=== PATIENT | male | born 1935 | race African-American/Black ===

== ENCOUNTER 2017-08-26 19:33 | Emergency (ER) | payer OTHER ==
[2017-08-26 20:06] VITALS: BP 110/60; PULSE 73; TEMP 98.2; BMI 22.2
--- NOTE | 2017-08-26 21:14 | PDOC ---
Attending Attestation - Resident Resident Name: [place] - ED Attending Attestation I have performed the following: I have examined & evaluated the patient, The case was reviewed & discussed with the resident, I agree w/resident's findings & plan, Exceptions are as noted - Physicial Exam PE: 08/26/17 23:51 Patient is awake and alert, afebrile, no distress, uncooperative; heent-ok cta rrr There are gauze dressings to the upper extremities bilaterally which the patient does not allow M.D. 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 Patient refused evaluation in the ER as well as any blood draws at the moment. Patient received vancomycin and gentamicin during hemodialysis prior to arrival. Patient has been advised of the seriousness of his condition which may lead to overwhelming sepsis, significant comorbidity and even . Patient expressed understanding but did not wish to be evaluated in the ER and signed out AMA. <Brandon Reyes - Last Filed: 08/26/17 23:51> - HPI HPI: 08/26/17 21:17 The patient is a 82 year old male, with a significant past medical history of ESRD (on dialysis M,W,F) and hypertension, who presents to the emergency department sent from dialysis center for evaluation of bleeding right AV graft and suspected infection s/p dialysis treatment today. - Medical Decision Making 08/26/17 21:17 First call placed to Dr. Marin at 23:42. Awaiting call back. Case discussed with Dr. Marin at 23:45. Documentation prepared by Camille Welch, acting as adjunct faculty for medical terminology for Brandon Reyes MD. <Camille Welch - Last Filed: 08/26/17 23:57>
--- NOTE | 2017-08-26 22:09 | PDOC ---
History of Present Illness - General Chief Complaint: Dialysis Shunt Problem Stated Complaint: DIALYSIS PORT PROBLEM Time Seen by Provider: 08/26/17 20:11 History Source: Patient, [facility] Records - History of Present Illness Initial Comments: 08/26/17 22:02 82M on dialysis M/W/F for hypertensive end stage renal disease who received his dialysis today, referred by Dr. Marin for an open wound on Right Upper Arteriovenous graft with "white plastic part visible" 142/54 70 18 temp 98 Given Vanco 1g and 80mg Gentamycin 08/26/17 23:50 Past History - Past Medical History Allergies/Adverse Reactions: Allergies Allergy/AdvReac Type Severity Reaction Status Date / Time No Known Allergies Allergy Verified 07/15/17 12:17 Home Medications: Ambulatory Orders Nut.tx.impaired Renal Fxn,Soy [Nepro] 1,000 ml PO BID 08/23/14 Bupropion HCl [Bupropion Xl] 150 mg PO DAILY 07/13/17 Quetiapine Fumarate [Seroquel -] 25 mg PO HS 07/13/17 Cinacalcet HCl [Sensipar] 60 mg PO DAILY 07/15/17 Escitalopram Oxalate [Lexapro -] 5 mg PO DAILY 07/15/17 Ferrous Sulfate 325 mg PO DAILY 07/15/17 Olanzapine 5 mg PO HS 07/15/17 Tamsulosin HCl [Flomax] 0.4 mg PO HS 07/15/17 Anemia: No Asthma: No Cancer: No Cardiac Disorders: No CVA: No COPD: No CHF: No Dementia: Yes Diabetes: No Dialysis: Yes (M,W,F) GI Disorders: No Disorders: Yes (BPH, END STAGE RENAL DISEASE) HTN: Yes Hypercholesterolemia: No Liver Disease: No Seizures: No Thyroid Disease: No - Suicide/Smoking/Psychosocial Hx Smoking Status: No Smoking History: Never smoked Have you smoked in the past 12 months: No Number of Cigarettes Smoked Daily: 0 Information on smoking cessation initiated: No Hx Alcohol Use: No Drug/Substance Use Hx: No Substance Use Type: None Hx Substance Use Treatment: No *Physical Exam - Vital Signs Last Vital Signs Temp Pulse Resp BP Pulse Ox 98.2 F 73 18 110/60 98 08/26/17 19:45 08/26/17 19:45 08/26/17 19:45 08/26/17 19:45 08/26/17 19:45 - Physical Exam General Appearance: Yes: Disheveled, Thin HEENT: positive: EOMI, WILLY, Normal ENT Inspection Neck: negative: Tender Respiratory/Chest: positive: Lungs Clear, Normal Breath Sounds. negative: Chest Tender Cardiovascular: positive: Regular Rhythm, Regular Rate, S1, S2 Gastrointestinal/Abdominal: positive: Normal Bowel Sounds. negative: Tender Extremity: positive: Other (bleeding from AVG on upper right arm. refuses any further evaluation). negative: Normal Capillary Refill Neurologic: positive: Depressed Affect (extremely irritable) Medical Decision Making - Medical Decision Making 08/26/17 22:14 82 with bleeding from AVG site on upper right arm. PAtient non-compliant with evaluation and treatment. Wants to leave AMA. Signed the AMA form. Transportation arranged to [facility] 08/26/17 22:27 08/26/17 23:[address] Carlos A Marin who advised letting Dr. Augustin Barahona know for surgery next dialysis encounter *DC/Admit/Observation/Transfer Diagnosis at time of Disposition: Hemodialysis graft malfunction - Discharge Dispostion Disposition: AGAINST MEDICAL ADVICE Condition at time of disposition: Unchanged/Unknown - Referrals - Patient Instructions - Post Discharge Activity
== END 2017-08-27 00:14 | disposition left against medical advice (07) ==
LOC: JER 19:33
DX: T82.590A Other mechanical complication of surgically created arteriovenous fistula, initial encounter (principal); N18.6 End stage renal disease; Z99.2 Dependence on renal dialysis
CPT/HCPCS: 99281-25

== ENCOUNTER 2017-10-22 08:37 | Day surgery (SDC) | payer OTHER ==
[2017-10-21 12:24] VITALS: BMI 17.3
[2017-10-22] MEDS ORDERED: ceFAZolin SODIUM 1 GM VIAL IVPB ONE (14:25)
[2017-10-22] MEDS ORDERED: PROPOFOL 20 ML ONE (14:27)
[2017-10-22] MEDS ORDERED: ceFAZolin SODIUM 1 GM VIAL ONE (14:29)
[2017-10-22] MEDS ORDERED: LIDOCAINE HCL 1%, 10 MG/ML (20ML VIAL) PNB ONE (15:15)
--- NOTE | 2017-10-22 15:24 | OP ---
Operative Note - Note: Operative Date: 10/22/17 Pre-Operative Diagnosis: infected right avg Operation: removal of right avg Post-Operative Diagnosis: Same as Pre-op Surgeon: Augustin Barahona Anesthesia: Fractional Estimated Blood Loss (mls): 30 Operative Report Dictated: Yes
--- NOTE | 2017-10-22 15:29 | HP ---
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: Other (Unspecified psychosis) Renal/: Yes: Renal Failure, Hemodialysis, UTI, Other (retention of urine) Psych: Yes: Psychosis Musculoskeletal: Yes: Other (muscle weakness; pressure ulcer of right buttock; pressure ulcer of sacral region) - Past Surgical History Past Surgical History: Yes: AV Fistula/Graft - Smoking History Smoking history: Never smoked Have you smoked in the past 12 months: No Aproximately how many cigarettes per day: 0 - Alcohol/Substance Use Hx Alcohol Use: No Home Medications - Allergies Allergies/Adverse Reactions: Allergies Allergy/AdvReac Type Severity Reaction Status Date / Time No Known Allergies Allergy Verified 10/21/17 12:33 - Home Medications Home Medications: Ambulatory Orders Nut.tx.impaired Renal Fxn,Soy [Nepro] 1,000 ml PO BID 08/23/14 Bupropion HCl [Bupropion Xl] 150 mg PO DAILY 07/13/17 Quetiapine Fumarate [Seroquel -] 25 mg PO HS 07/13/17 Cinacalcet HCl [Sensipar] 60 mg PO DAILY 07/15/17 Escitalopram Oxalate [Lexapro -] 5 mg PO DAILY 07/15/17 Ferrous Sulfate 325 mg PO DAILY 07/15/17 Olanzapine 5 mg PO HS 07/15/17 Tamsulosin HCl [Flomax] 0.4 mg PO HS 07/15/17 Review of Systems - Review of Systems Constitutional: reports: No Symptoms Eyes: reports: No Symptoms HENT: reports: No Symptoms Neck: reports: No Symptoms Cardiovascular: reports: No Symptoms Respiratory: reports: No Symptoms Gastrointestinal: reports: No Symptoms Genitourinary: reports: No Symptoms Breasts: reports: No Symptoms Reported Musculoskeletal: reports: No Symptoms Integumentary: reports: No Symptoms Neurological: reports: No Symptoms Endocrine: reports: No Symptoms Hematology/Lymphatic: reports: No Symptoms Psychiatric: reports: No Symptoms Physical Examination Vital Signs: Vital Signs Temperature 97.8 F 10/22/17 09:24 Pulse Rate 77 10/22/17 09:24 Respiratory Rate 16 10/22/17 09:24 Blood Pressure 100/51 10/22/17 09:24 O2 Sat by Pulse Oximetry (%) 95 10/22/17 09:24 Constitutional: Yes: Well Nourished, No Distress, Calm Eyes: Yes: WNL, Conjunctiva Clear, EOM Intact HENT: Yes: WNL, Atraumatic, Normocephalic Neck: Yes: WNL, Supple, Trachea Midline Cardiovascular: Yes: WNL, Regular Rate and Rhythm Respiratory: Yes: WNL, Regular, CTA Bilaterally Gastrointestinal: Yes: WNL, Normal Bowel Sounds Musculoskeletal: Yes: WNL Extremities: Yes: WNL Edema: No Integumentary: Yes: WNL Neurological: Yes: WNL, Alert, Oriented ...Motor Strength: WNL Psychiatric: Yes: WNL Labs: CBC, BMP 10/22/17 10:35 Problem List - Problems (1) Infection of AV graft for dialysis Code(s): T82.7XXA - INFECT/INFLM REACT D/T OTH CARDI/VASC DEV/IMPLNT/GRFT, INIT (2) Hemodialysis graft malfunction Code(s): T82.319A - BREAKDOWN (MECHANICAL) OF UNSP VASCULAR GRAFTS, INIT ENCNTR Assessment/Plan Infected right avg 1. for removal of avg today.
[2017-10-22] MEDS ORDERED: ONDANSETRON 4 MG/2 ML VIAL IVPUSH PRN (15:40)
[2017-10-22 16:39] VITALS: TEMP 98
[2017-10-22 17:33] VITALS: BP 123/63; PULSE 80
--- NOTE | 2017-10-26 08:44 | PATH ---
Surgical Pathology Report Patient Name: KURTIS GAGNON Med. Rec. #: [id number] /Age/Gender: 1935 (Age: 82) / M Account: [id number] Location: [facility] Taken: 10/22/2017 Received: 10/23/2017 Reported: 10/26/2017 Physicians: Augustin Barahona Specimen(s) Received REMOVED RIGHT AVG Clinical History Infected right AVG Final Diagnosis ARM, RIGHT, AVG, GRAFT, REMOVAL: GRAFT MATERIAL. MACROSCOPIC DIAGNOSIS. Electronically Signed Hermelinda Becker M.D. Gross Description Received fresh labeled "removed right arm graft," is a 6.0 cm in length tubular foreign body, consistent with a graft. No sections are submitted, gross only. DL/10/23/201710/23/2017
--- NOTE | 2017-10-27 14:16 | OP ---
DATE OF OPERATION: 10/22/2017 PREOPERATIVE DIAGNOSIS: Infected right arteriovenous graft. POSTOPERATIVE DIAGNOSIS: Infected right arteriovenous graft. PROCEDURE: Removal of right arteriovenous graft. SURGEON: Augustin Ocasio DO ANESTHESIA: Fractional. BLOOD LOSS: 30 mL INDICATION FOR PROCEDURE: The patient is a 76-year-old male who comes from [facility] with a protruding AV graft in his right upper arm. It was felt that that portion needed to be removed so that the skin can be closed. Patient came into Ambulatory Surgery. Patient was consented for the procedure, understanding all risks, benefits, and alternatives, and then taken to the operating room. DESCRIPTION OF PROCEDURE: Once in the operating suite, laid on the operating table in supine manner and the area of the right arm was prepped and draped with betadine in a sterile surgical manner. We then went ahead and injected 10 mL of % over the distal AV graft in the upper arm, and a transverse incision of 3 cm was made using a 15 blade. We then went ahead and dissected out the graft and clamped it proximally and distally and went ahead and cut it with heavy scissors. Through the open incision, the graft was then removed. Once the graft was removed, the proximal portion was closed with 3-0 Prolene double arm in a running fashion. Once that was done, the wound was well irrigated. The proximal portion of the graft was still well covered, and we left that alone. In the proximal upper arm, we then went ahead and washed out both upper arm wounds and used skin allison, and the wounds were closed; 4 x 4 Tegaderms were placed. The patient tolerated the procedure with no complication. Total blood loss was 30 mL. Graft was sent to Pathology so that it can be cultured. AUGUSTIN OCASIO DO SCHOOL SUPERVISOR/[id number]
== END 2017-10-22 17:30 | disposition home or self-care (01) ==
LOC: JASU-SURG 08:37
PROVIDERS: ATTEND Surgery Vascular Surgery
PROC: 0XP60YZ Removal of Other Device from Right Upper Extremity, Open Approach (ICD-10-PCS; 2017-10-22)
PROC: 03PY0JZ Removal of Synthetic Substitute from Upper Artery, Open Approach (ICD-10-PCS; principal; 2017-10-22 10:30)
DX: T82.319A Breakdown (mechanical) of unspecified vascular grafts, initial encounter (principal); N18.6 End stage renal disease; Z99.2 Dependence on renal dialysis; Y83.2 Surgical operation with anastomosis, bypass or graft as the cause of abnormal reaction of the patient, or of later complication, without mention of misadventure at the time of the procedure; Y92.9 Unspecified place or not applicable
CPT/HCPCS: 36415; 84132; 88300-TC; 94760

== ENCOUNTER 2018-04-21 13:45 | Observation (INO) | payer OTHER ==
--- NOTE | 2018-04-21 14:16 | PDOC ---
History of Present Illness - General Chief Complaint: Dialysis Shunt Problem Stated Complaint: LT AVG CLOT Time Seen by Provider: 04/21/18 14:16 - History of Present Illness Initial Comments: 82M on dialysis M/W/F for hypertensive end stage renal disease (M,W,F via left upper arm AVF) who received his dialysis today 1.5 hours but (per dialysis center note) there is concern for clot in the AVF as there was "high pressure". Patient is agitated, forgetful, and non-compliant during interview and denies any symptoms. He questions " Why the expletive am I here? You all going to charge me $10,000 for this expletive." Denies, fevers, nausea, vomiting, diarrhea, chest pain, headache, or any symptoms. 04/21/18 14:35 Past History - Past Medical History Allergies/Adverse Reactions: Allergies Allergy/AdvReac Type Severity Reaction Status Date / Time No Known Allergies Allergy Verified 04/21/18 14:22 Home Medications: Ambulatory Orders Bupropion HCl [Bupropion HCl Sr] 150 mg PO DAILY 04/21/18 Cinacalcet HCl [Sensipar] 60 mg PO DAILY 04/21/18 Escitalopram Oxalate [Lexapro -] 10 mg PO DAILY 04/21/18 Gabapentin [Neurontin -] 100 mg PO DAILY 04/21/18 Tamsulosin HCl [Flomax -] 0.4 mg PO DAILY 04/21/18 Anemia: No Asthma: No Cancer: No Cardiac Disorders: No CVA: No COPD: No CHF: No Dementia: Yes Diabetes: No Dialysis: Yes (M,W,F) GI Disorders: No Disorders: Yes (BPH, END STAGE RENAL DISEASE) HTN: Yes Hypercholesterolemia: No Liver Disease: No Seizures: No Thyroid Disease: No - Suicide/Smoking/Psychosocial Hx Smoking Status: No Smoking History: Never smoked Have you smoked in the past 12 months: No Number of Cigarettes Smoked Daily: 0 Hx Alcohol Use: No Drug/Substance Use Hx: No Substance Use Type: None Hx Substance Use Treatment: No Review of Systems - Review of Systems Constitutional: No: Chills, Diaphoresis, Fever, Loss of Appetite HEENTM: No: Blurred Vision, Tearing Respiratory: No: Cough, Shortness of Breath, Wheezing Cardiac (ROS): No: Edema, Irregular Heart Rate, Lightheadedness ABD/GI: No: Diarrhea, Nausea, Vomiting Musculoskeletal: No: Joint Pain, Muscle Weakness Integumentary: No: Lesions, Lumps, Pallor Neurological: No: Numbness, Paresthesia, Tremors Hematologic/Lymphatic: No: Anemia, Blood Clots, Easy Bleeding *Physical Exam - Vital Signs Last Vital Signs Temp Pulse Resp BP Pulse Ox 98 04/21/18 14:10 - Physical Exam General Appearance: Yes: Nourished, Appropriately Dressed. No: Apparent Distress HEENT: positive: EOMI, Normal ENT Inspection, Normal Voice Neck: positive: Trachea midline, Normal Thyroid, Supple. negative: Tender, Rigid Respiratory/Chest: positive: Lungs Clear, Normal Breath Sounds. negative: Chest Tender, Respiratory Distress, Accessory Muscle Use Cardiovascular: positive: Regular Rhythm, Regular Rate Gastrointestinal/Abdominal: positive: Normal Bowel Sounds, Flat, Soft. negative : Tender Lymphatic: negative: Adenopathy, Tenderness Musculoskeletal: positive: Normal Inspection. negative: Decreased Range of Motion Extremity: positive: Normal Capillary Refill, Normal Inspection, Normal Range of Motion. negative: Tender Integumentary: positive: Normal Color, Dry, Warm, Other (Left upper arm AVF with palpable thrill) Neurologic: positive: lot technician II-XII NML intact, Fully Oriented, Alert, Normal Mood/ Affect, Normal Response, Motor Strength 5/5 ED Treatment Course - LABORATORY CBC & Chemistry Diagram: 04/21/18 18:54 04/21/18 20:00 Medical Decision Making - Medical Decision Making 83 year old male with shortened dialysis session because of high back pressures in his left arm AVF. This was concerning for clot as evidenced on doppler despite palpable thrill in AVF. Patient admitted and signed out to medical team and Dr. Barahona. Labs and vitals not indicateing urgent need for dialysis or further medical intervention. *DC/Admit/Observation/Transfer Diagnosis at time of Disposition: Clotted renal dialysis AV graft - Discharge Dispostion Disposition: [facility] - Referrals - Patient Instructions - Post Discharge Activity
[2018-04-21] MEDS ORDERED: LORazepam 2 MG/ML SDV VIAL ONE (14:57)
--- NOTE | 2018-04-21 15:30 | PDOC ---
Attending Attestation - Resident Resident Name: Sheir Mendoza - ED Attending Attestation I have performed the following: I have examined & evaluated the patient, The case was reviewed & discussed with the resident, I agree w/resident's findings & plan, Exceptions are as noted - HPI HPI: 04/21/18 15:27 83yo M hx ESRD on HD MWF via left upper arm AVF presents to the ED with concern for malfunctioning AVF due to high pressures during HD. Pt received 1.5hrs of HD. Pt denies any other sxs of CP, SOB, fevers, abd pain, headache, N/V/D, weakness, headache. - Physicial Exam PE: 04/21/18 15:28 GENERAL: Awake, alert, in no acute distress EYES: PERRLA, conjunctiva clear ENT: Oropharynx clear without exudates. Moist mucosa LUNGS: Breath sounds equal, clear to auscultation bilaterally. No wheezes, and no crackles HEART: Regular rate and rhythm, normal S1 and S2, no murmurs, rubs or gallops ABDOMEN: Soft, nontender, normoactive bowel sounds. No guarding, no rebound. No masses EXTREMITIES: LUE with AVF with palpable thrill, no bleeding. Otherwise, ext with normal range of motion, no edema. No clubbing or cyanosis. No cords, erythema, or tenderness NEUROLOGICAL: Normal speech, cranial nerves intact, equal strength and sensation b/l SKIN: Warm, Dry, normal turgor, no rashes or lesions noted. - Medical Decision Making 04/21/18 15:30 83yo M presents to the ED with concern for AVF thrombosis. Pt agitated and uncooperative cursing nurse and resident, given 0.5mg ativan. On monitor. Will obtain US to evaluate fistula. Case discussed with Dr. Barahona ([facility]). 04/21/18 18:33 AVF with draining vein thrombosis. Dr. Barahona updated. Pt admitted to Dr. Hurtado for further mgmt/dispo <Sepideh Cornejo - Last Filed: 04/21/18 18:35> - Medical Decision Making 04/21/18 18:43 Documentation prepared by Kim Mariano, acting as medical customer service representative for Sepideh Cornejo MD. <Kim Mariano - Last Filed: 04/21/18 18:45> Heart Score/ECG Review #1 04/21/18 18:35 Twelve-lead EKG was performed and reviewed by me. Normal sinus rhythm, rate 74. Left axis deviation. Prolonged QT to 508. No ST elevations. <Sepideh Cornejo - Last Filed: 04/21/18 18:35> ED Treatment Course - RADIOLOGY Radiograph Interpretation: 04/21/18 18:44 Duplex scan of upper extremity artery was reviewed by Dr. Cornejo and over-read by Radiology. Impression: There is thrombosis of the draining vein of an AV fistula as noted above. - Medications Given in the ED: ED Medications Discontinued Medications Generic Name Dose Route Start Last Admin Trade Name Freq PRN Reason Stop Dose Admin Lorazepam 0.5 mg 04/21/18 14:51 04/21/18 15:02 Ativan Injection - IM 04/21/18 14:52 0.5 mg ONCE ONE Administration <Kim Mariano - Last Filed: 04/21/18 18:45>
[2018-04-21 19:07] LABS: EOS % 2.3 % (0-4.5); HEMATOCRIT 27.3 % (35.4-49); HEMOGLOBIN 9.1 GM/dL (11.7-16.9); LYMPH % 22.7 % (8-40); MCH 30.7 pg (25.7-33.7); MCHC 33.3 g/dl (32.0-35.9); MEAN CELL VOLUME 92.1 fl (80-96); MEAN PLT VOLUME 8.5 fl (7.5-11.1); MONO % 6.5 % (3.8-10.2); NEUT % 67.5 % (42.8-82.8); PLATELET COUNT 158 K/MM3 (134-434); RBC 2.96 M/mm3 (4.00-5.60); RDW 19.8 % (11.9-15.9); WHITE BLOOD COUNT 4.5 K/mm3 (4.0-10.0)
[2018-04-21 19:18] LABS: INR 1.37 (0.82-1.09); PROTHROMBIN TIME (PATIENT) 15.5 SEC (9.7-13.0)
[2018-04-21 20:33] LABS: ALBUMIN 2.7 g/dl (3.4-5.0); ANION GAP 10 (8-16); BILIRUBIN,TOTAL 0.3 mg/dL (0.2-1.0); BLOOD UREA NITROGEN 43 mg/dL (7-18); CALCIUM 7.4 mg/dL (8.5-10.1); CHLORIDE 104 mmol/L (98-107); CO2 27 mmol/L (21-32); CREATININE 3.3 mg/dL (0.7-1.3); GLUCOSE,RANDOM 113 mg/dL (74-106); SGPT/ALT 19 U/L (12-78); SODIUM 141 mmol/L (136-145); TOT PROT 6.4 g/dl (6.4-8.2)
[2018-04-21 20:34] LABS: ALK PHOS 780 U/L (45-117)
[2018-04-21 20:38] LABS: POTASSIUM 4.3 mmol/L (3.5-5.1)
[2018-04-21 20:39] LABS: SGOT/AST 29 U/L (15-37)
--- NOTE | 2018-04-21 21:37 | HP ---
Admitting History and Physical - Primary Care Physician PCP: Colette Hurtado - Admission History of Present Illness: 82M on dialysis M/W/F for hypertensive end stage renal disease (M,W,F via left upper arm AVF) who received his dialysis today 1.5 hours but (per dialysis center note) there is concern for clot in the AVF as there was "high pressure". Patient is agitated, forgetful, and non-compliant during interview and denies any symptoms. He questions " Why the expletive am I here? You all going to charge me $10,000 for this expletive." Denies, fevers, nausea, vomitign, diarrhea, chest pain, headache, or any symptoms. 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: Other (Unspecified psychosis) Renal/: Yes: Renal Failure, Hemodialysis, UTI, Other (retention of urine) Psych: Yes: Psychosis Musculoskeletal: Yes: Other (muscle weakness; pressure ulcer of right buttock; pressure ulcer of sacral region) - Past Surgical History Past Surgical History: Yes: AV Fistula/Graft - Smoking History Smoking history: Never smoked Have you smoked in the past 12 months: No Aproximately how many cigarettes per day: 0 - Alcohol/Substance Use Hx Alcohol Use: No Home Medications - Allergies Allergies/Adverse Reactions: Allergies Allergy/AdvReac Type Severity Reaction Status Date / Time No Known Allergies Allergy Verified 04/21/18 14:22 - Home Medications Home Medications: Ambulatory Orders Bupropion HCl [Bupropion HCl Sr] 150 mg PO DAILY 04/21/18 Cinacalcet HCl [Sensipar] 60 mg PO DAILY 04/21/18 Escitalopram Oxalate [Lexapro -] 10 mg PO DAILY 04/21/18 Gabapentin [Neurontin -] 100 mg PO DAILY 04/21/18 Levofloxacin [Levaquin] 250 mg PO DAILY 04/21/18 Tamsulosin HCl [Flomax -] 0.4 mg PO DAILY 04/21/18 Physical Examination Vital Signs: Vital Signs Temperature 98.0 F 04/21/18 13:45 Pulse Rate 76 04/21/18 20:34 Respiratory Rate 14 04/21/18 20:34 Blood Pressure 109/66 04/21/18 20:34 O2 Sat by Pulse Oximetry (%) 96 04/21/18 20:34 Constitutional: Yes: No Distress HENT: Yes: Atraumatic Neck: Yes: Supple Cardiovascular: Yes: Regular Rate and Rhythm Respiratory: Yes: CTA Bilaterally Gastrointestinal: Yes: Normal Bowel Sounds Extremities: Yes: WNL Edema: No Peripheral Pulses WNL: Yes Neurological: Yes: Alert, Oriented Labs: CBC, BMP 04/21/18 18:54 04/21/18 20:00 Problem List - Problems (1) Clotted renal dialysis AV graft Assessment/Plan: for OR in am dr alves Code(s): T82.868A - THROMBOSIS DUE TO VASCULAR PROSTH DEV/GRFT, INIT (2) ESRD (end stage renal disease) Assessment/Plan: on hd Code(s): N18.6 - END STAGE RENAL DISEASE Assessment/Plan Laboratory Tests 04/21/18 04/21/18 04/21/18 18:54 18:54 18:54 WBC 4.5 RBC 2.96 L Hgb 9.1 L Hct 27.3 L D MCV 92.1 MCH 30.7 MCHC 33.3 RDW 19.8 H Plt Count 158 MPV 8.5 D Absolute Neuts (auto) 3.0 Neutrophils % 67.5 Lymphocytes % 22.7 D Monocytes % 6.5 Eosinophils % 2.3 D Basophils % 1.0 Nucleated RBC % 0 PT with INR 15.50 H INR 1.37 H Sodium Cancelled Potassium Cancelled Chloride Cancelled Carbon Dioxide Cancelled Anion Gap Cancelled BUN Cancelled Creatinine Cancelled Creat Clearance w eGFR Cancelled Random Glucose Cancelled Calcium Cancelled Magnesium Cancelled Total Bilirubin Cancelled AST Cancelled ALT Cancelled Alkaline Phosphatase Cancelled Total Protein Cancelled Albumin Cancelled Blood Type Antibody Screen 04/21/18 04/21/18 18:54 20:00 WBC RBC Hgb Hct MCV MCH MCHC RDW Plt Count MPV Absolute Neuts (auto) Neutrophils % Lymphocytes % Monocytes % Eosinophils % Basophils % Nucleated RBC % PT with INR INR Sodium 141 Potassium 4.3 Chloride 104 Carbon Dioxide 27 Anion Gap 10 BUN 43 H Creatinine 3.3 H Creat Clearance w eGFR 17.95 Random Glucose 113 H D Calcium 7.4 L D Magnesium Total Bilirubin 0.3 AST 29 D ALT 19 D Alkaline Phosphatase 780 H Total Protein 6.4 Albumin 2.7 L Blood Type O POSITIVE Antibody Screen Negative
[2018-04-22] MEDS ORDERED: TAMSULOSIN HCL 0.4 MG CAP.ER.24H (FP) PO SCH (08:30)
[2018-04-22] MEDS ORDERED: CINACALCET HCL 30 MG TAB (FP) PO SCH (10:00)
[2018-04-22] MEDS ORDERED: ESCITALOPRAM OXALATE 10 MG TABLET (FP) PO SCH (10:00)
[2018-04-22] MEDS ORDERED: GABAPENTIN 100 MG CAPSULE (FP) PO SCH (10:00)
[2018-04-22 12:36] VITALS: BMI 19.5
[2018-04-22] MEDS ORDERED: PROMETHAZINE HCL 25 MG/1 ML VIAL IVPUSH PRN (13:27)
[2018-04-22] MEDS ORDERED: ONDANSETRON 4 MG/2 ML VIAL IVPUSH PRN ×2 (13:27→16:00)
[2018-04-22] MEDS ORDERED: SODIUM CHLORIDE 1,000 ML IV SCH ×2 (13:30→16:00)
[2018-04-22] MEDS ORDERED: MIDAZOLAM HCL 2 MG/2 ML SINGLE DOSE VIAL ONE (13:43)
[2018-04-22] MEDS ORDERED: LIDOCAINE HCL 1%, 10 MG/ML (20ML VIAL) ONE (13:48)
[2018-04-22] MEDS ORDERED: HEPARIN NA (PORCINE) 5,000 UNITS/ML 1ML VIAL ONE ×2 (13:48→14:22)
[2018-04-22] MEDS ORDERED: ceFAZolin SODIUM 1 GM VIAL ONE (14:03)
[2018-04-22] MEDS ORDERED: SODIUM CHLORIDE 0.9% P/F 10 ML VIAL IJ ONE (14:03)
[2018-04-22] MEDS ORDERED: ceFAZolin SODIUM 1 GM VIAL IVPB ONE (14:05)
--- NOTE | 2018-04-22 14:22 | EKG ---
Test Reason : Blood Pressure : / mmHG Vent. Rate : 074 BPM Atrial Rate : 074 BPM P-R Int : 172 ms QRS Dur : 074 ms QT Int : 458 ms P-R-T Axes : 018 -45 006 degrees QTc Int : 508 ms NORMAL SINUS RHYTHM LEFT AXIS DEVIATION PULMONARY DISEASE PATTERN PROLONGED QT ABNORMAL ECG WHEN COMPARED WITH ECG OF 23-AUG-2014 07:56, MINIMAL CRITERIA FOR SEPTAL INFARCT ARE NO LONGER PRESENT NONSPECIFIC T WAVE ABNORMALITY NO LONGER EVIDENT IN LATERAL LEADS QT HAS LENGTHENED Confirmed by SHARONA LYNN MD ([id number]) on 04/22/2018 2:21:57 PM Referred By: Confirmed By:SHARONA LYNN MD
--- NOTE | 2018-04-22 14:40 | OP ---
Operative Note - Note: Operative Date: 04/22/18 Pre-Operative Diagnosis: poor flow in left avg Operation: venogram, venoplasty left avg Post-Operative Diagnosis: Same as Pre-op Surgeon: Augustin Barahona Anesthesia: Fractional Estimated Blood Loss (mls): 20 Operative Report Dictated: Yes
[2018-04-22] MEDS ORDERED: PROMETHAZINE HCL 25 MG/1 ML VIAL IVPB PRN (16:00)
--- NOTE | 2018-04-22 17:36 | PN ---
Progress Note, Physician - Current Medication List Current Medications: Active Medications Bupropion HCl (Wellbutrin Xl -) 150 mg PO DAILY [facility] Cinacalcet (Sensipar -) 60 mg PO DAILY [facility] Escitalopram Oxalate (Lexapro -) 10 mg PO DAILY [facility] Fentanyl (Sublimaze Injection -) 50 mcg IVPUSH [id number] PRN PRN Reason: PAIN-PACU ORDER X 4 DOSES ONLY Gabapentin (Neurontin -) 100 mg PO DAILY [facility] Sodium Chloride (Normal Saline -) 1,000 mls @ 42 mls/hr IV ASDIR [facility] Ondansetron HCl (Zofran Injection) 4 mg IVPUSH Q6H PRN PRN Reason: NAUSEA AND/OR VOMITING Promethazine HCl (Phenergan Injection -) 12.5 mg IVPB Q6H PRN PRN Reason: NAUSEA-FOR RESCUE AFTER 15 MIN Tamsulosin HCl (Flomax -) 0.4 mg PO 0830 [facility] - Objective Vital Signs: Vital Signs Temperature 98.1 F 04/22/18 09:00 Pulse Rate 70 04/22/18 09:00 Respiratory Rate 18 04/22/18 09:00 Blood Pressure 118/69 04/22/18 09:00 O2 Sat by Pulse Oximetry (%) 96 04/21/18 23:32 HENT: Yes: Atraumatic Neck: Yes: Supple Cardiovascular: Yes: Regular Rate and Rhythm Respiratory: Yes: CTA Bilaterally Gastrointestinal: Yes: Normal Bowel Sounds Extremities: Yes: Other (left arm fistula was fixed, site clean) Neurological: Yes: Alert, Oriented Labs: CBC, BMP 04/21/18 18:54 04/21/18 20:00 INR, PTT INR 1.37 (0.82-1.09) H 04/21/18 18:54 Problem List - Problems (1) Clotted renal dialysis AV graft Assessment/Plan: s/p surgery doing well Code(s): T82.868A - THROMBOSIS DUE TO VASCULAR PROSTH DEV/GRFT, INIT (2) ESRD (end stage renal disease) Code(s): N18.6 - END STAGE RENAL DISEASE
[2018-04-22] MEDS: CINACALCET HCL 30 MG TAB (FP) PO SCH (18:03)
[2018-04-22] MEDS: TAMSULOSIN HCL 0.4 MG CAP.ER.24H (FP) PO SCH (18:04)
[2018-04-22] MEDS: ESCITALOPRAM OXALATE 10 MG TABLET (FP) PO SCH (18:04)
[2018-04-22] MEDS: GABAPENTIN 100 MG CAPSULE (FP) PO SCH (18:05)
[2018-04-23] MEDS ORDERED: SODIUM CHLORIDE 250 ML IV PRN ×2 (08:03→08:04)
[2018-04-23 09:00] VITALS: TEMP 97.9
--- NOTE | 2018-04-23 09:31 | PN ---
Progress Note (short form) - Note Progress Note: POD #1 Alert. Doing well. Currently on HD (using LUE AVG). No complaints. HD RN states acceptable flow. AVSS. Afebrile. Gen:nad LUE: on HD. + radial pulse. hand warm Cont care per primary team. Re-consult prn On behalf of Dr. Barahona, thank you for the opportunity to participate in your patient's care.
[2018-04-23] MEDS ORDERED: EPOETIN ALFA 10,000 UNIT/1 ML VIAL IVPUSH ONE (10:00)
[2018-04-23] MEDS ORDERED: HEPARIN NA (PORCINE) 5,000 UNITS/ML 1ML VIAL IVPUSH ONE (10:00)
[2018-04-23] MEDS: HEPARIN NA (PORCINE) 5,000 UNITS/ML 1ML VIAL IVPUSH SCH ×3 (10:00→11:59)
--- NOTE | 2018-04-23 12:06 | CONSULT ---
Consult - text type - Consultation Consultation Note: Renal Consult for ESRD on HD This is a 83 year old AA Gentleman with PMhx of ESRD on HD, Secondary Hyperparathyroidism who presented with a clotted AVG. Pt w/o any acute complaints now. Last dialysis before today was Wed that was terminated early due to access problems. s/p declott by Dr. Barahona today. Currently on dialysis and access is working well. No sob, chest pain, abd pain. PMHx: As above Allergies: NKDA Family Hx: NC Social Hx: NC ROS: As per HPI Home Medications Medication Instructions Recorded Bupropion HCl [Bupropion HCl Sr] 150 mg PO DAILY 04/21/18 Cinacalcet HCl [Sensipar] 60 mg PO DAILY 04/21/18 Escitalopram Oxalate [Lexapro -] 10 mg PO DAILY 04/21/18 Gabapentin [Neurontin -] 100 mg PO DAILY 04/21/18 Levofloxacin [Levaquin] 250 mg PO DAILY 04/21/18 Tamsulosin HCl [Flomax -] 0.4 mg PO DAILY 04/21/18 Vital Signs Temperature 97.9 F 04/23/18 08:30 Pulse Rate 66 04/23/18 11:35 Respiratory Rate 18 04/23/18 11:35 Blood Pressure 120/60 04/23/18 11:35 O2 Sat by Pulse Oximetry (%) 95 04/23/18 05:00 Intake & Output 04/20/18 04/21/18 04/22/18 04/23/18 23:59 23:59 23:59 23:59 Intake Total 0 685 Output Total 20 Balance 0 665 Weight 58.57 kg 58.513 kg NAD awake and alert RRR, No M/R CTA, no rales or wheeze soft NT/ND No LE edema CBC, BMP 04/21/18 18:54 04/21/18 20:00 Current Medications Bupropion HCl (Wellbutrin Xl -) 150 mg PO DAILY [facility] Last Admin: 04/22/18 18:04 Dose: 150 mg Cinacalcet (Sensipar -) 60 mg PO DAILY [facility] Last Admin: 04/22/18 18:03 Dose: 60 mg Escitalopram Oxalate (Lexapro -) 10 mg PO DAILY [facility] Last Admin: 04/22/18 18:04 Dose: 10 mg Fentanyl (Sublimaze Injection -) 50 mcg IVPUSH [id number] PRN PRN Reason: PAIN-PACU ORDER X 4 DOSES ONLY Gabapentin (Neurontin -) 100 mg PO DAILY [facility] Last Admin: 04/22/18 18:05 Dose: 100 mg Sodium Chloride (Normal Saline -) 250 mls @ 3,000 mls/hr IV PRN PRN PRN Reason: Hypotension during Dialysis Stop: 04/24/18 08:03 Sodium Chloride (Normal Saline -) 250 mls @ 3,000 mls/hr IV PRN PRN PRN Reason: Hypotension during Dialysis Stop: 04/24/18 08:04 Ondansetron HCl (Zofran Injection) 4 mg IVPUSH Q6H PRN PRN Reason: NAUSEA AND/OR VOMITING Promethazine HCl (Phenergan Injection -) 12.5 mg IVPB Q6H PRN PRN Reason: NAUSEA-FOR RESCUE AFTER 15 MIN Tamsulosin HCl (Flomax -) 0.4 mg PO 0830 [facility] Last Admin: 04/22/18 18:04 Dose: 0.4 mg 83 year old AA Gentleman with PMhx of ESRD on HD, Secondary Hyperparathyroidism who presented with a clotted AVG. #ESRD on HD #Clotted AVG #BPH #Depression s/p Declott, AVG working well now tolerating dialysis w/o complication BP stable, UF tolerated well continue Flomax and Lexapro Discharge as per primary Thank you Carlos A Marin DO
--- NOTE | 2018-04-23 12:07 | DS ---
Physical Examination Vital Signs: Vital Signs Temperature 97.9 F 04/23/18 08:30 Pulse Rate 66 04/23/18 11:35 Respiratory Rate 18 04/23/18 11:35 Blood Pressure 120/60 04/23/18 11:35 O2 Sat by Pulse Oximetry (%) 95 04/23/18 05:00 Constitutional: Yes: No Distress HENT: Yes: Atraumatic Neck: Yes: Supple Cardiovascular: Yes: Regular Rate and Rhythm Respiratory: Yes: CTA Bilaterally Gastrointestinal: Yes: Normal Bowel Sounds Extremities: Yes: Other (left avg site clean) Neurological: Yes: Alert, Oriented Labs: CBC, BMP 04/21/18 18:54 04/21/18 20:00 Discharge Summary Reason For Visit: THROMBOSIS OF RENAL ARTERIOVNOUS GRAFT - Instructions Referrals: [facility] [Outside] Colette Hurtado MD [Staff Physician] - Carlos A Marin MD [Staff Physician] - - Home Medications Comprehensive Discharge Medication List: Ambulatory Orders Bupropion HCl [Bupropion HCl Sr] 150 mg PO DAILY 04/21/18 Cinacalcet HCl [Sensipar] 60 mg PO DAILY 04/21/18 Escitalopram Oxalate [Lexapro -] 10 mg PO DAILY 04/21/18 Gabapentin [Neurontin -] 100 mg PO DAILY 04/21/18 Levofloxacin [Levaquin] 250 mg PO DAILY 04/21/18 Tamsulosin HCl [Flomax -] 0.4 mg PO DAILY 04/21/18 oh home
[2018-04-23] MEDS: TAMSULOSIN HCL 0.4 MG CAP.ER.24H (FP) PO SCH (12:50)
[2018-04-23] MEDS: CINACALCET HCL 30 MG TAB (FP) PO SCH (12:50)
[2018-04-23] MEDS: GABAPENTIN 100 MG CAPSULE (FP) PO SCH (12:50)
[2018-04-23] MEDS: ESCITALOPRAM OXALATE 10 MG TABLET (FP) PO SCH (12:50)
[2018-04-23 15:01] VITALS: BP 102/66; PULSE 76
[2018-04-25 08:06] LABS: HBSAG SCREEN Negative (Negative); HEP A AB, IGM Negative (Negative); HEP B CORE AB, TOT Negative (Negative)
--- NOTE | 2018-04-26 09:21 | OP ---
DATE OF OPERATION: 04/22/2018 PREOPERATIVE DIAGNOSIS: Poor flow through left arteriovenous graft. POSTOPERATIVE DIAGNOSIS: Poor flow through left arteriovenous graft. PROCEDURE: Venogram, venoplasty, left arteriovenous graft. SURGEON: Augustin Ocasio D.O. ANESTHESIA: Fractional. BLOOD LOSS: 20 mL. INDICATION: The patient is 83-year-old that comes in from the shelter due to a difficult cannulation in the left AV graft. It was decided that he would need a venogram. Patient's family consented for the procedure understanding all risks, benefits, and alternatives. DESCRIPTION OF PROCEDURE: The patient was then brought to the operating room and laid down on the operating room table in a supine manner. The area of the left arm was then prepped and draped in a sterile surgical manner. We then injected 10 mL of lidocaine 1% in the proximal AV graft. We then took our Micropuncture needle and punctured the AV graft. A Micropuncture wire was inserted, Micropuncture sheath was inserted, and a traditional short 6-Romanian sheath was inserted. 3000 units of IV heparin were administered to the patient. We then shot a venogram by hand injection. Venogram by hand injection showed that the graft is patent but there is a 70% to 80% stenosis across the venous anastomosis. At this point we placed a 0.035 floppy guidewire across the venous anastomosis and used an 8 x 4 Durata balloon to perform venoplasty of the area. Completion venogram showed that the area was now patent. There was no recoil, and there was good flow all the way up into the central vein. At this point we used a 4-0 Biosyn stitch and a [id number] stitch was placed around the sheath, and the sheath was pulled. Areas were then dried. Dermabond was placed. Patient tolerated the procedure with no complications. Patient was transferred to PACU in stable condition. AUGUSTIN OCASIO DO [id number]
== END 2018-04-23 15:50 ==
LOC: JER 13:45 → JERBED 20:01 → J5S 21:59
PROVIDERS: ADMIT Internal Medicine; ATTEND Internal Medicine
PROC: 057F3ZZ Dilation of Left Cephalic Vein, Percutaneous Approach (ICD-10-PCS; principal; 2018-04-21)
PROC: 3E0337Z Introduction of Electrolytic and Water Balance Substance into Peripheral Vein, Percutaneous Approach (ICD-10-PCS; 2018-04-21)
PROC: 3E03329 Introduction of Other Anti-infective into Peripheral Vein, Percutaneous Approach (ICD-10-PCS; 2018-04-21)
DX: T82.868A Thrombosis due to vascular prosthetic devices, implants and grafts, initial encounter (principal); Y84.1 Kidney dialysis as the cause of abnormal reaction of the patient, or of later complication, without mention of misadventure at the time of the procedure; Y92.9 Unspecified place or not applicable; I12.0 Hypertensive chronic kidney disease with stage 5 chronic kidney disease or end stage renal disease; N18.6 End stage renal disease; Z99.2 Dependence on renal dialysis; F03.90 Unspecified dementia, unspecified severity, without behavioral disturbance, psychotic disturbance, mood disturbance, and anxiety; N40.0 Benign prostatic hyperplasia without lower urinary tract symptoms
CPT/HCPCS: 36415; 76000-TC-FY; 80053; 85025; 85610; 86704; 86706; 86708; 86803; 86850; 86900; 86901; 87340; 93005; 93010; 93971; 94760; 96374; 99285-25; G0378; J0885; J1644

== ENCOUNTER 2018-05-09 23:28 | Emergency (ER) | payer OTHER ==
[2018-05-10] MEDS ORDERED: APIXABAN 5 MG TABLET PO SCH (01:00)
--- NOTE | 2018-05-10 01:58 | PDOC ---
History of Present Illness - General Chief Complaint: Revisit,Radiology Variance Stated Complaint: DVT LEFT LEG Time Seen by Provider: 05/10/18 00:52 History Source: Care Provider Exam Limitations: No Limitations - History of Present Illness Initial Comments: 05/10/18 01:01 Patient is a 83 year old male history of ESRD on HD, BPH, fistula graft and a right forearm and left arm, PVD, schizophrenia, muscular weakness, pressure ulcers, urinary retention, UTI, hypercholesterolemia, dementia, major depressive disorder, sent from [facility] for a DVT on US 05/09/18 - Nonocclusive DVT of the left superficial femoral vein. PMHX: Dr. Jovel PMHX: as above PSOCHX: lives in a NH, nonabulatory ALL: NKDA GENERAL/CONSTITUTIONAL: Unable to obtain due to dementia GENERAL: [The patient is awake, alert, and fully oriented, in no acute distress. ] HEAD: [Normal with no signs of trauma.] EYES: [Pupils equal, round and reactive to light, extraocular movements intact, sclera anicteric, conjunctiva clear.] ENT: [Ears normal, nares patent, oropharynx clear without exudates. Moist mucous membranes.] NECK: [Normal range of motion, supple without lymphadenopathy, JVD, or masses.] LUNGS: [Breath sounds equal, clear to auscultation bilaterally. No wheezes, and no crackles.] HEART: [Regular rate and rhythm, normal S1 and S2 without murmur, rub, (+) thrill, fistula right forearm, and left arm] ABDOMEN: [Soft, nontender, normoactive bowel sounds. No guarding, no rebound. No masses.] EXTREMITIES: [Normal range of motion, no edema. No clubbing or cyanosis. No cords, erythema, or tenderness.] NEUROLOGICAL: [Cranial nerves II through XII grossly intact. Normal speech, normal gait.] PSYCH: [Normal mood, normal affect.] SKIN: [Warm, Dry, normal turgor, no rashes or lesions noted.] Past History - Past Medical History Allergies/Adverse Reactions: Allergies Allergy/AdvReac Type Severity Reaction Status Date / Time No Known Allergies Allergy Verified 04/21/18 14:22 Home Medications: Ambulatory Orders Bupropion HCl [Bupropion HCl Sr] 150 mg PO DAILY 04/21/18 Cinacalcet HCl [Sensipar] 60 mg PO DAILY 04/21/18 Escitalopram Oxalate [Lexapro -] 10 mg PO DAILY 04/21/18 Gabapentin [Neurontin -] 100 mg PO DAILY 04/21/18 Tamsulosin HCl [Flomax -] 0.4 mg PO DAILY 04/21/18 Apixaban [Eliquis] 2 tab PO BID #40 tablet 05/10/18 Anemia: No Asthma: No Cancer: No Cardiac Disorders: No CVA: No COPD: No CHF: No Dementia: Yes Diabetes: No Dialysis: Yes (M,W,F) GI Disorders: No Disorders: Yes (BPH, END STAGE RENAL DISEASE) HTN: Yes Hypercholesterolemia: No Liver Disease: No Seizures: No Thyroid Disease: No - Suicide/Smoking/Psychosocial Hx Smoking Status: No Smoking History: Never smoked Have you smoked in the past 12 months: No Number of Cigarettes Smoked Daily: 0 Hx Alcohol Use: No Drug/Substance Use Hx: No Substance Use Type: None Hx Substance Use Treatment: No Medical Decision Making - Medical Decision Making 05/10/18 01:01 Patient is a 83 year old male history of ESRD on HD, BPH, fistula graft and a right forearm and left arm, PVD, schizophrenia, muscular weakness, pressure ulcers, urinary retention, UTI, hypercholesterolemia, dementia, major depressive disorder, sent from [facility] for a DVT on 05/09/18 - Nonocclusive DVT of the left superficial femoral vein. Will give Eliquis and d/c to the snf. Called the [place] to d/w with TOOL WORKER. 05/10/18 01:52 Case was discussed with CHUCKY Andujar, patient was sent for IV heparin for a Dx of DVT, but recommended Eliquis. CHUCKY Andujar confirmed with the PMD and states was OK to send the pt back with Eliquis. Eliquis 10mg po ordered and given in the ED I discussed the physical exam findings, ancillary test results and final diagnoses with the patient. I answered all of the patient's questions. The patient was satisfied with the care received and felt comfortable with the discharge plan and treatment plan. The Patient agrees to follow up with the primary care physician within 24-72 hours. *DC/Admit/Observation/Transfer Diagnosis at time of Disposition: DVT (deep venous thrombosis) Qualifiers: DVT location: lower extremity Affected thrombotic vein of extremity: femoral Chronicity: acute Laterality: left Qualified Code(s): I82.412 - Acute embolism and thrombosis of left femoral vein - Discharge Dispostion Disposition: HOME Condition at time of disposition: Stable - Prescriptions Prescriptions: Apixaban [Eliquis] 2 tab PO BID #40 tablet - Referrals - Patient Instructions Printed Discharge Instructions: DI for Deep Vein Thrombosis Additional Instructions: Your Discharge Instructions: You must call primary care physician within 24 hours to arrange follow-up. Return to the Emergency Department with any new, persistent or worsening symptoms, for fever, chills, SOB, dizziness or any other concerning changes that may occur. - Post Discharge Activity
[2018-05-10 02:18] VITALS: BP 101/54; PULSE 70; TEMP 98.1; BMI 17.2
== END 2018-05-10 03:40 ==
LOC: JER 23:28
DX: I82.412 Acute embolism and thrombosis of left femoral vein (principal); I12.0 Hypertensive chronic kidney disease with stage 5 chronic kidney disease or end stage renal disease; N18.6 End stage renal disease; Z99.2 Dependence on renal dialysis; N40.0 Benign prostatic hyperplasia without lower urinary tract symptoms; I73.9 Peripheral vascular disease, unspecified; E78.5 Hyperlipidemia, unspecified; F03.90 Unspecified dementia, unspecified severity, without behavioral disturbance, psychotic disturbance, mood disturbance, and anxiety; F33.9 Major depressive disorder, recurrent, unspecified; L89.90 Pressure ulcer of unspecified site, unspecified stage
CPT/HCPCS: 99281-25

== ENCOUNTER → 2018-07-22 | Emergency (ER) | payer OTHER ==
[~2018-07-22] MED LIST: DOPAMINE 400 MG/D5W - 400,000 MCG/250 ML INFUS.BAG IVPB ONE; DOPAMINE 400 MG/D5W - 400,000 MCG/250 ML INFUS.BAG IVPB SCH; SODIUM CHLORIDE 250 ML IV STA
[2018-07-22 06:41] VITALS: BMI 21.2
--- NOTE | 2018-07-22 06:53 | PDOC ---
Attending Attestation - Resident Resident Name: MontezPierreJerrod - ED Attending Attestation I have performed the following: I have examined & evaluated the patient, The case was reviewed & discussed with the resident, I agree w/resident's findings & plan, Exceptions are as noted - HPI HPI: 07/22/18 06:58 83 yo M h/o ESRD on HD M, W, F, prior clot in fistula Pt presents to the ER due to RUE fistula bleeding Pt reportedly Awake and alert Upon arrival to the ER, pt lost vital signs Upon arrival to the ER, initial rhythm - PEA ACLS initiated with continuous high quality chest compressions Epi given x 3 Calcium chloride given x 1 (unsure last HD) HCO3 given Pt had one run of Vfib for which he was defibrillated Pt has a return of spontaneous circulation 07/22/18 07:05 EKG performed: anterior wall STEMI Case reviewed with Dr Euceda at [facility] fax EKGs now Awaiting their call back Will start Dopamine 07/22/18 07:19 Loss of vital signs at 7:05pm Contacted Dr Euceda again He states it is likely better to manage this patient medically for the next few hours to see how he does BEFORE transferring ACLS resumed Pt Asystole No pulse palpated Pt at 7:12pm 07/22/18 07:42 Pt nephew in the ER Has seen this patient No PMD noted Certificate filled out 07/22/18 08:00 07/22/18 08:04 - Physicial Exam PE: 07/22/18 07:57 Please see above - Critical Care Time Total Critical Care Time: 60 Critical Care Statement: The care of this patient involved high complexity decision making to prevent further life threatening deterioration of the patient 's condition and/or to evaluate & treat vital organ system(s) failure or risk of failure. - Medical Decision Making 07/22/18 07:58 Pt briefly regained ROSC Pt again lost vital signs Family member is aware of pt status 07/22/18 07:59 Call placed to medical assistant per diem (by nurse) [phone] *DC/Admit/Observation/Transfer Diagnosis at time of Disposition: Cardiac arrest, - Discharge Dispostion Disposition: - Referrals - Patient Instructions - Post Discharge Activity
[2018-07-22 07:13] LABS: BASO % 0.4 % (0-2.0); EOS % 2.6 % (0-4.5); HEMATOCRIT 15.9 % (35.4-49); LYMPH % 52.4 % (8-40); MCH 29.8 pg (25.7-33.7); MCHC 30.8 g/dl (32.0-35.9); MEAN CELL VOLUME 96.6 fl (80-96); MEAN PLT VOLUME 7.6 fl (7.5-11.1); MONO % 5.8 % (3.8-10.2); NEUT % 38.8 % (42.8-82.8); PLATELET COUNT 172 K/MM3 (134-434); RBC 1.64 M/mm3 (4.00-5.60); RDW 18.3 % (11.9-15.9); WHITE BLOOD COUNT 11.5 K/mm3 (4.0-10.0)
[2018-07-22 07:33] LABS: HEMOGLOBIN 4.9 GM/dL (11.7-16.9)
--- NOTE | 2018-07-22 07:44 | PDOC ---
History of Present Illness - General Chief Complaint: Cardiac Arrest Stated Complaint: CARDIAC ARREST Time Seen by Provider: 07/22/18 06:44 - History of Present Illness Initial Comments: 07/22/18 07:43 83 yo M with h/o HTN, ESRD ( HD M,W,F), clotted renal dialysis AV graft LUE, BIBA with presumed RUE fistula bleeding. EMS reports patient awake and alert on arrival, with intact vital signs, but once they arrived to emergency department , patient with loss of pulses, and unresponsive. EMS reports beginning chest compressions on entrance to ED. Patient did not receive medication during cardiac arrest outside hospital. Once in ED room, patient with PEA, with continued chest compressions, and received bicarbonate x 2, Calcium Chloride x1 and Epi x 3. Echocardiagram with global hypokinesis. Patient intubated. Central line placed. Patient then developed V-fib and then defibrillated with ROSC. Loss of pulse at 7:05 AM, and chest compressions resumed. Patient with asystole on monitor, with absent pulses despite resuscitative efforts. Patient at 7:12 AM. Past History - Past Medical History Allergies/Adverse Reactions: Allergies Allergy/AdvReac Type Severity Reaction Status Date / Time No Known Allergies Allergy Verified 07/22/18 06:39 Home Medications: Ambulatory Orders Escitalopram Oxalate [Lexapro -] 10 mg PO DAILY 04/21/18 Apixaban [Eliquis] 2 tab PO BID #40 tablet 05/10/18 Cinacalcet HCl [Sensipar] 60 mg PO ASDIR 05/10/18 Ferrous Sulfate 325 mg PO ASDIR 05/10/18 Risperidone [Risperdal -] 1 mg PO HS 05/10/18 Sod Phos Di, [place]/K Phos [place] [K-Phos Neutral Tablet] 250 mg PO AC 05/10/18 Anemia: No Asthma: No Cancer: No Cardiac Disorders: No CVA: No COPD: No CHF: No Dementia: Yes Diabetes: No Dialysis: Yes (M,W,F) GI Disorders: No Disorders: Yes (BPH, END STAGE RENAL DISEASE) HTN: Yes Hypercholesterolemia: No Liver Disease: No Seizures: No Thyroid Disease: No - Suicide/Smoking/Psychosocial Hx Smoking Status: No Smoking History: Unknown if ever smoked Have you smoked in the past 12 months: No Number of Cigarettes Smoked Daily: 0 Hx Alcohol Use: No Drug/Substance Use Hx: No Substance Use Type: None Hx Substance Use Treatment: No Cardiac Specific PMH - Complaint Specific PMHX Pacemaker: No Review of Systems - Review of Systems Comments:: 07/22/18 07:53 Unable to obtain *Physical Exam - Vital Signs Last Vital Signs Temp Pulse Resp BP Pulse Ox 68 16 95/57 L 0 L 07/22/18 07:10 07/22/18 07:00 07/22/18 07:10 07/22/18 06:39 - Physical Exam Comments: 07/22/18 07:53 GENERAL: Patient unresponsive to noxious and verbal stimuli. HEAD: + gastric aspirate in oral mucosa. No signs of trauma, normocephalic, atraumatic EYES: sclera anicteric, conjunctiva clear NECK: + JVD. Supple, no lymphadenopathy, or masses LUNGS: Absent breath sounds BL. HEART: Regular rate and rhythm, normal S1 and S2, no murmurs, rubs or gallops, peripheral pulses normal and equal bilaterally. EXTREMITIES : Normal inspection, no edema. No clubbing or cyanosis. SKIN: cool, no rashes or lesions noted Procedures - Central Line Central Line Lumen: single Central Line Position: internal jugular (R) Complications: none - Intubation Intubation Method: orotracheal Blade used: Mac Tube Size (Fr): 8.0 Tube position confirmed by: Direct visualization, CO2 detector, Breath sounds Breath Sounds after Intubation: equal Intubation Complications: vomited, apparent aspiration, O2 saturation decreased ED Treatment Course - LABORATORY CBC & Chemistry Diagram: 07/22/18 06:30 07/22/18 06:30 - ADDITIONAL ORDERS Additional order review: Laboratory Results 07/22/18 07/22/18 06:30 06:30 WBC 11.5 H RBC 1.64 L Hgb 4.9 L* Hct 15.9 L D MCV 96.6 H MCH 29.8 MCHC 30.8 L RDW 18.3 H Plt Count 172 MPV 7.6 D Absolute Neuts (auto) 4.5 Neutrophils % 38.8 L D Lymphocytes % 52.4 H D Monocytes % 5.8 Eosinophils % 2.6 Basophils % 0.4 Nucleated RBC % 0 Sodium 138 Potassium 5.8 H Chloride 101 Carbon Dioxide 23 Anion Gap 13 BUN 70 H Creatinine 6.3 H Creat Clearance w eGFR 8.51 Random Glucose 154 H Calcium 7.6 L Total Bilirubin 0.4 AST 27 ALT 18 Alkaline Phosphatase 735 H Creatine Kinase 274 Creatine Kinase Index 0.6 CK-MB (CK-2) 1.8 Troponin I 0.11 H Total Protein 4.9 L Albumin 2.2 L 07/22/18 06:30 RBC 1.64 L MCV 96.6 H MCHC 30.8 L RDW 18.3 H MPV 7.6 D Neutrophils % 38.8 L D Lymphocytes % 52.4 H D Monocytes % 5.8 Eosinophils % 2.6 Basophils % 0.4 - Medications Given in the ED: ED Medications Discontinued Medications Generic Name Dose Route Start Last Admin Trade Name Freq PRN Reason Stop Dose Admin Sodium Chloride 250 mls @ 250 mls/hr 07/22/18 06:54 07/22/18 07:03 Normal Saline - IV 07/22/18 07:53 250 mls/hr ASDIR STA Administration Medical Decision Making - Medical Decision Making 07/22/18 07:56 83 yo M with h/o HTN, ESRD ( HD M,W,F), clotted renal dialysis AV graft LEXUS JEFF from [facility] with presumed RUE fistula bleeding. Patient with loss of vital signs in ED bay. EMS began compressions. Patient noted to be in asystole in ED room. Resuscitation continued with multiple rounds of compressions, Epi, HCO3. Ca. Cl x 1. Pt. Intubated. + ROSC at 6:40, and patient started on Dopamine gtt, with vent settings. Patient with asystole at 7:05 AM Absent pulses, echocardiogram with global hypokinesis Patient at 7:12 AM Family member ( Nephew notified) of , present in ED. 07/22/18 08:07 H/H: 4.9/15.9 07/22/18 08:10 Trop: 0.11, K+ 5.8, BUN/Cr: 70/6.3 07/22/18 08:11 [facility] notified of patient , and nurse states that Dr. Leach is PMD. 07/22/18 08:13 High School T[employer] Number [id number] Tone Whitney *DC/Admit/Observation/Transfer Diagnosis at time of Disposition: Cardiac arrest, - Discharge Dispostion Disposition: - Referrals - Patient Instructions - Post Discharge Activity
[2018-07-22 07:49] LABS: ALBUMIN 2.2 g/dl (3.4-5.0); ALK PHOS 735 U/L (45-117); ANION GAP 13 MMOL/L (8-16); BILIRUBIN,TOTAL 0.4 mg/dL (0.2-1); BLOOD UREA NITROGEN 70 mg/dL (7-18); CALCIUM 7.6 mg/dL (8.5-10.1); CHLORIDE 101 mmol/L (98-107); CO2 23 mmol/L (21-32); CREATININE 6.3 mg/dL (0.55-1.3); GLUCOSE,RANDOM 154 mg/dL (74-106); POTASSIUM 5.8 mmol/L (3.5-5.1); SGOT/AST 27 U/L (15-37); SGPT/ALT 18 U/L (13-61); SODIUM 138 mmol/L (136-145); TOT PROT 4.9 g/dl (6.4-8.2)
[2018-07-22 08:53] VITALS: BP 0/0; PULSE 0
--- NOTE | 2018-07-22 09:20 | EKG ---
Test Reason : Blood Pressure : / mmHG Vent. Rate : 101 BPM Atrial Rate : 078 BPM P-R Int : 000 ms QRS Dur : 102 ms QT Int : 358 ms P-R-T Axes : 000 -29 -68 degrees QTc Int : 464 ms ATRIAL FIBRILLATION WITH RAPID VENTRICULAR RESPONSE WITH PREMATURE VENTRICULAR OR ABERRANTLY CONDUCTED COMPLEXES MINIMAL VOLTAGE CRITERIA FOR LVH, MAY BE NORMAL VARIANT ST ELEVATION CONSIDER ANTEROLATERAL INJURY OR ACUTE INFARCT ACUTE [place] / STEMI ABNORMAL ECG WHEN COMPARED WITH ECG OF 21-APR-2018 17:17, ATRIAL FIBRILLATION HAS REPLACED SINUS RHYTHM QUESTIONABLE CHANGE IN QRS DURATION Confirmed by SHARONA LYNN MD ([id number]) on 07/22/2018 9:20:28 AM Referred By: Confirmed By:SHARONA LYNN MD
[2018-07-22 10:20] LABS: ANISOCYTOSIS 1+; MACROCYTOSIS 0; OVALOCYTE 1+; PLATELET ESTIMATE NORMAL
== END | disposition expired ==
LOC: JER 06:25
PROC: 5A12012 Performance of Cardiac Output, Single, Manual (ICD-10-PCS; principal; 2018-07-22)
PROC: 05HM33Z Insertion of Infusion Device into Right Internal Jugular Vein, Percutaneous Approach (ICD-10-PCS; 2018-07-22)
PROC: 3E0337Z Introduction of Electrolytic and Water Balance Substance into Peripheral Vein, Percutaneous Approach (ICD-10-PCS; 2018-07-22)
PROC: 0BH17EZ Insertion of Endotracheal Airway into Trachea, Via Natural or Artificial Opening (ICD-10-PCS; 2018-07-22)
PROC: 5A1935Z Respiratory Ventilation, Less than 24 Consecutive Hours (ICD-10-PCS; 2018-07-22)
DX: I46.9 Cardiac arrest, cause unspecified (principal); I12.0 Hypertensive chronic kidney disease with stage 5 chronic kidney disease or end stage renal disease; N18.6 End stage renal disease; N17.8 Other acute kidney failure; Z99.2 Dependence on renal dialysis; F03.90 Unspecified dementia, unspecified severity, without behavioral disturbance, psychotic disturbance, mood disturbance, and anxiety; N40.0 Benign prostatic hyperplasia without lower urinary tract symptoms
CPT/HCPCS: 36415; 80053; 82550; 82553; 84484; 85025; 93005; 93010; 99285-25; J7030